=== PATIENT | female | born 1960 | race Caucasian/White ===

== ENCOUNTER 2016-11-12 05:37 | Day surgery (SDC) | payer BC ==
[2016-11-07 14:32] LABS: HEMATOCRIT 45.6 % (36.0-48.0); HEMOGLOBIN 14.5 g/dL (12.0-16.0)
[2016-11-07 14:43] LABS: BUN (BLOOD UREA NITROGEN) 10 MG/DL (6-23); CALCIUM, SERUM 10.4 MG/DL (8.5-10.4); CHLORIDE, SERUM 104 MMOL/L (96-112); CO2 (CARBON DIOXIDE) 32 MMOL/L (24-34); CREATININE 0.76 MG/DL (0.55-1.02); GFR AFRICAN AMERICAN 101 ML/MIN (>=60); GFR NON AFRICAN AMERICAN 87 ML/MIN (>=60); GLUCOSE, SERUM 131 MG/DL (60-99); POTASSIUM, SERUM 3.8 MMOL/L (3.5-5.3); SODIUM, SERUM 142 MMOL/L (135-148)
[~2016-11-12] VITALS: Ht 149.9 cm; Wt 77.3 kg
[~2016-11-12 05:37] MED LIST: ADVAIR INH; ALBUTEROL0.083 % INH; ASAB PO; BREO ELLIPTA 21 EACH INH; CALTRA600D PO; CARTIA XT240 MG/24 PO; COMP10B PO; FOSAMAX70 MG PO; LOTE5 PO; NASACORTAQ NAS; PCET PO; PROAIRRESP INH; SINGULAIR; SINGULAIR1 PO; ZYRTEC ALLGY10 MG PO
== END 2016-11-12 09:11 | disposition home or self-care (01) ==
LOC: SDC 05:37
PROVIDERS: Ophthalmology
PROC: 08RK3JZ Replacement of Left Lens with Synthetic Substitute, Percutaneous Approach (ICD-10-PCS; principal; 2016-11-12 07:15)
DX: H25.12 Age-related nuclear cataract, left eye (principal); I10 Essential (primary) hypertension; G47.33 Obstructive sleep apnea (adult) (pediatric); E66.9 Obesity, unspecified; Z68.34 Body mass index [BMI] 34.0-34.9, adult; Z79.82 Long term (current) use of aspirin; Z90.710 Acquired absence of both cervix and uterus; Z98.41 Cataract extraction status, right eye; Z96.1 Presence of intraocular lens; Z98.890 Other specified postprocedural states; Z79.899 Other long term (current) drug therapy
CPT/HCPCS: 80048; 85014; 85018; 93005; J2250